=== PATIENT | female | born 1980 | race Caucasian/White ===

== ENCOUNTER 2018-04-05 15:11 | Outpatient (CLI) | payer BC ==
[2018-04-05 16:26] LABS: Hemoglobin 13.5 g/dL (12.0-16.0); Mean Corpuscular Hemoglobin 31.7 pg (27.0-31.0); Mean Corpuscular Volume 93.1 fL (78.0-98.0); Mean Platelet Volume 8.2 fL (7.4-10.4); Platelet Count 257 thou/uL (130-400); RBC Distribution Width 11.3 % (11.5-14.5); Red Blood Cell (RBC) Count 4.26 mill/uL (4.20-5.40); White Blood Cell (WBC) Count 8.5 thou/uL (4.8-10.8)
[2018-04-05 16:32] LABS: BHCG - Serum Negative (NEGATIVE); Pregs Control Background? CLEAR/WHITE (CLR/WHITE); Pregs Control Bar Appear? YES (CONTROL BAR)
== END 2018-04-05 15:12 | disposition home or self-care (01) ==
LOC: LABBT 15:11
PROVIDERS: ATTEND Obstetrics & Gynecology
DX: Z01.812 Encounter for preprocedural laboratory examination (principal); N80.9 Endometriosis, unspecified; N83.201 Unspecified ovarian cyst, right side; N94.6 Dysmenorrhea, unspecified; N94.10 Unspecified dyspareunia; R10.32 Left lower quadrant pain
CPT/HCPCS: 84703; 85027; 86850; 86900; 86901

== ENCOUNTER 2018-04-07 07:01 | Day surgery (SDC) | payer BC ==
[2018-04-05 15:24] VITALS: BMI 23.6
--- NOTE | 2018-04-05 19:49 | HP ---
DATE OF PLANNED PROCEDURE: 04/07/2018 PREOPERATIVE DIAGNOSES: 1. Left lower quadrant pain and endometriosis. 2. Dyspareunia. 3. Dysmenorrhea. HISTORY OF PRESENT ILLNESS: Ms. Carmelina Hare is a 37-year-old G3, P2-0-1-2 with history of left lower quadrant pain with ovulation, menstrual cycles and intercourse for 4-6 months. The patient reports that this pain prevents her from doing her activities of daily living and requires her to stay home d uring her menstrual cycle. The patient gives a history of very painful periods as well as a history of endometriosis that was diagnosed by laparoscopy in her 20s. The patient is not interested in ben ging her symptoms with oral or hormonal therapies and request surgical management. Well the patient desires surgery to remove her left ovary, she does not desire a hysterectomy and requested endometria l ablation. PAST MEDICAL HISTORY: Anxiety, asthma, and depression. PAST SURGICAL HISTORY: Tubal ligation, section x2, breast augmentation, diagnostic laparosc opy. SOCIAL HISTORY: The patient is a daily smoker. She is . Denies alcohol or drug use. FAMILY HISTORY: Negative. OBSTETRICAL HISTORY: Significant for two previous sections. GYNECOLOGIC HISTORY: Significant for irregular periods with severe menstrual cramps. Last Pap smear was 08/2016 with negative Pap smear result and negative HPV testing. The patient sexually active an d has a history of genital warts many years ago. She is using tubal ligation for her contraceptive m ethod and she has a history of endometriosis. MEDICATIONS: Amitriptyline 10 mg daily, clonazepam 1 mg as needed, ProAir HFA as needed, sertraline 100 mg a day. ALLERGIES: The patient is allergic to MORPHINE and WELLBUTRIN. PHYSICAL EXAMINATION: VITAL SIGNS: Height 5 feet 4 inches, weight 130 pounds, BMI 23, blood pressure 134/82, pulse 115, re spiration rate 18, O2 saturation 98%. GENERAL: No acute distress. Alert and oriented. CARDIOVASCULAR: Regular rate and rhythm. LUNGS: Clear to auscultation bilaterally. HEENT: Grossly normal. ABDOMEN: Soft, nontender, no masses, no guarding. GENITOURINARY: No lesions. Normal vaginal mucosa. Physiologic appearing cervical discharge. Uteru s is now enlarged. Bladder and urethra appear normal. No perianal skin lesions, fissures or masses at the rectum. SKIN: Normal. No rashes. Mental status. PSYCHIATRIC: Appropriate mood and affect. IMAGING STUDIES: Ultrasound on 02/20/2018 reports uterus that is a 7.6 x 3.4 cm, left ovary, that is normal appearing. Right ovary that is normal appearing. No free fluid. Simple appearing right ova hector cyst that is 2.5 x 1.5 cm. ASSESSMENT AND PLAN: Ms. Carmelina Hare is a 37-year-old G3, P2-0-1-2 with history of tubal ligation wi th a history of left lower quadrant pain with ovulation, menstrual cycles and intercourse and also wi th a history of dysmenorrhea that affects her activities of daily living. The patient has requested surgical management and has been counseled of the risks, benefits, and alternative methods including medical management options. The patient does not desire a hysterectomy and has requested an endometr ial ablation with laparoscopic removal of her left ovary and tube. The patient understands the risks , benefits, and alternatives to these procedures. She understands that removing the left ovary does not guarantee that her left lower quadrant pain will resolve. She also understands that an endometri al ablation does not guarantee amenorrhea. The patient understands the risks are to include, but not limited to bleeding, infection. Damage to intraabdominal pelvic organs, possible need for future me dical or surgical management and inability to fully diagnose and treat all conditions at the time of surgery. The patient's questions have been answered to her satisfaction. She desires to proceed wit h the procedure as listed above.
[2018-04-07] MEDS ORDERED: CeleCOXIB 100 MG CAP ONE (07:56)
[2018-04-07] MEDS ORDERED: Famotidine/PF 20 mg/2ml Vial ONE (07:56)
[2018-04-07] MEDS ORDERED: CEFAZOLIN/Water 2 GM/20 ML SYRINGE ONE (07:56)
[2018-04-07] MEDS ORDERED: Gabapentin 300 MG CAP ONE (07:56)
[2018-04-07] MEDS ORDERED: Bupivacaine HCl 0.5%/Epinephrine 1:200,000/PF 30 ml Vial ONE (09:18)
[2018-04-07] MEDS ORDERED: Fentanyl 100 MCG/2 ML VIAL ONE (09:26)
[2018-04-07] MEDS ORDERED: Midazolam HCl 2 mg/2 ml Vial ONE (09:50)
[2018-04-07] MEDS ORDERED: Bacitracin Zinc Ointment 30 gm TUBE ONE (10:46)
[2018-04-07] MEDS ORDERED: HYDROcodone/Acetaminophen 5/325 mg Tablet ONE (12:44)
--- NOTE | 2018-04-07 13:12 | OP ---
DATE OF PROCEDURE: 04/07/2018 SURGEON: Seth Rubin D.O. PHYSICS DEPARTMENT CHAIR: Rajni Garcia M.D. PREOPERATIVE DIAGNOSIS: Left lower quadrant pain and dysmenorrhea, menorrhagia. POSTOPERATIVE DIAGNOSIS: Left lower quadrant pain and dysmenorrhea, menorrhagia. PROCEDURES PERFORMED: 1. Robotic assist single site left salpingo-oophorectomy. 2. Uterine dilation and curettage. 3. Hysteroscopy. 4. Romana endometrial ablation. COMPLICATIONS: None. URINE OUTPUT: 80 mL. ESTIMATED BLOOD LOSS: Less than 20 mL. PROCEDURE FINDINGS: Abnormally cystic appearing left ovary and left fallopian tube, normal appearing right ovary, normal appearing uterus both on laparoscopic and hysteroscopic assessment, normal appea ring cervix and vagina. PROCEDURE DETAILS: The patient was taken back to the OR with IV fluids running. Once she was in the operating room, general anesthesia was obtained and the patient was placed in low dorsal lithotomy p osition. The abdomen and vagina were prepped and draped in normal fashion for gynecologic, laparosco pic and hysteroscopic procedures. A Velasco catheter was placed in the bladder to drain the bladder du ring the case. An operative speculum was placed into the vagina. The cervix was grasped with single tooth tenaculum and was easily visualized. The single tooth tenaculum was then removed and sponge w as placed into the vagina for uterine manipulation during the laparoscopic portion of the case. An o perative speculum was removed. The surgeon's gloves were changed and attention was turned to the lap aroscopic portion of the case. Beginning at the umbilicus, a 2.5 cm skin incision was made with the scalpel. The Veress needle was placed through this skin incision at the level of the umbilicus and t he abdomen was insufflated without difficulty. After the abdomen was insufflated, a 12 mm trocar was placed through the skin incision with the above findings noted with the laparoscope. The laparoscop e was then removed and the skin incision was extended over the 12 mm trocar to extend the fascia, the full length of the incision. After the fascia was incised, trocar was removed. The gas was release d from the abdomen and Tj GelPOINT retractor was placed into the abdominal cavity. Next, the margaret otic camera port and 2 operative arm ports were placed through the GelPOINT. After these were in pro per place and alignment, the GelPort lid was assembled over the Tj retractor and the abdomen was insufflated with the ports placed through the skin incision. Next, the instruments were directed und er laparoscopic view through the trocars. The abdomen and pelvis were examined with the above findin gs noted. On the patient's left side, the left ureter was identified and noted to be well away from the IP ligament. The left abnormal appearing ovary was elevated away from the pelvic sidewall. The IP ligament was identified and cauterized. Some small adhesions of the omentum to the left ovary wer e taken down with cauterization. After the IP ligament was cauterized and transected, the left fallo pian tube was dissected away from the mesosalpinx as well. The left fallopian tube was cauterized as well as a left utero-ovarian ligament which was then cauterized and transected. Once the left ovary and tube were freed from the pelvic sidewall and from the uterus, the surgical sites were inspected and no areas of bleeding were noted. The left ovary and tube were placed into an EndoCatch specimen bag which was removed from the operative field through the GelPOINT retractor. After the specimen wa s removed, the surgical area was copiously irrigated and suctioned dry. No areas of bleeding were no brittany. All instruments and ports were removed from the abdomen. The GelPOINT cap was removed. The ga s was released from the abdomen and the Tj retractor was removed from the umbilical incision. Th e fascia was then easily visualized and grasped and the fascial layer was closed with Vicryl suture i n a running fashion. After the fascia was closed, a series of 3 interrupted plain gut sutures were p laced at the subcutaneous tissue to restore the anatomy below the incision. A 4-0 Monocryl was used to close the skin incision. The incision was dressed with bacitracin ointment, sterile cotton ball a nd a sterile Tegaderm dressing. After the laparoscopic portion of the procedure was completed, atten tion was turned to the hysteroscopy and ablation portion of the procedure. An operative speculum was placed into the vagina with the cervix was again grasped with a single tooth tenaculum. The cervix was serially dilated to allow passage of the Romana ablation tip. After the cervix was dilated, the uterus was sounded to approximately 8 cm. The cervix was measured at approximately 3 cm. The hyste roscope was then placed through the cervix and the uterus. Within the uterus, a small polypoid-appea ring tissue was noted at the anterior aspect of the uterus. The tubal ostia were identified. There was some convexity noted at the fundus in the midline, possibly suggestive of an arcuate uterus. Aft er the hysteroscopic portion of the procedure was completed, a gentle curettage was performed and the polypoid-appearing tissue was noted to be removed. This was sent for pathologic review. Next, the Romana was placed at a 5 cm length with tracking a 3 cm cervix with an 8 cm for uterine length. The Romana device was gently placed through the cervix into the uterine cavity. The safety test was co mpleted and normal. After the safety test was completed, the device was initiated and the ablation p rocedure was completed over 120 seconds. After the ablation procedure was completed, the intracervic al balloon was released. The Romana was retracted and removed from the uterus and cervix. Cervix w as inspected with no areas of bleeding noted. There was no bleeding from the tenaculum site. All in struments were removed from the vagina. The counts were correct and Velasco catheter was removed. The patient was then cleaned, dried, taken out of lithotomy position. She was extubated and sent to rec overy room in good condition.
[2018-04-07] MEDS ORDERED: Vecuronium 10 MG VIAL ONE (13:43)
[2018-04-07] MEDS ORDERED: Glycopyrrolate 0.2 MG/ML 5 ML SYRINGE ONE (13:43)
[2018-04-07] MEDS ORDERED: ePHEDrine/0.9% NaCl/PF SYRINGE 50 mg/10 ml ONE (13:43)
[2018-04-07] MEDS ORDERED: PHENYLEPHRINE-NS 100 MCG/ML 10 ML SYRINGE ONE (13:43)
[2018-04-07] MEDS ORDERED: PROPOFOL 200 MG/20 ML VIAL ONE (13:43)
[2018-04-07] MEDS ORDERED: Succinylcholine Chloride 20 MG/ML 10 ml SYRINGE FS ONE (13:43)
[2018-04-07] MEDS ORDERED: Ondansetron PF 4 MG/2 ML Vial ONE (13:43)
[2018-04-07] MEDS ORDERED: Dexamethasone 20 MG/5 ML VIAL ONE (13:43)
[2018-04-07] MEDS ORDERED: Lidocaine 1% PF 5 ML VIAL ONE (13:43)
== END 2018-04-07 13:00 | disposition home or self-care (01) ==
LOC: SDC 07:01
PROVIDERS: ATTEND Obstetrics & Gynecology
PROC: 0UT14ZZ Resection of Left Ovary, Percutaneous Endoscopic Approach (ICD-10-PCS; principal; 2018-04-07)
PROC: 0U5B8ZZ Destruction of Endometrium, Via Natural or Artificial Opening Endoscopic (ICD-10-PCS; principal; 2018-04-07)
PROC: 0UT64ZZ Resection of Left Fallopian Tube, Percutaneous Endoscopic Approach (ICD-10-PCS; principal; 2018-04-07)
DX: N92.0 Excessive and frequent menstruation with regular cycle (principal); N83.202 Unspecified ovarian cyst, left side; N80.9 Endometriosis, unspecified; F41.9 Anxiety disorder, unspecified; F32.9 Major depressive disorder, single episode, unspecified; J45.909 Unspecified asthma, uncomplicated; F17.210 Nicotine dependence, cigarettes, uncomplicated; Z79.899 Other long term (current) drug therapy; Z88.5 Allergy status to narcotic agent; Z88.8 Allergy status to other drugs, medicaments and biological substances; Z98.51 Tubal ligation status
CPT/HCPCS: 96374; J0670; J2250; J3010; S0028

== ENCOUNTER 2018-04-07 19:26 | Emergency (ER) | payer BC ==
[2018-04-07 20:24] LABS: #Eosinphils 0.1 thou/uL (0.0-0.7); #Lymphocytes 0.8 thou/uL (1.20-3.40); #Monocytes 0.3 thou/uL (0.11-0.59); #Neutrophils 9.7 thou/uL (1.40-6.50); %Basophils 0.4 % (0.0-1.0); %Eosinophils 0.7 % (0.0-10.0); %Lymphocytes 7.6 % (21.0-51.0); %Monocytes 2.6 % (0.0-10.0); %Neutrophils 88.7 % (42.0-75.0); Hemoglobin 11.6 g/dL (12.0-16.0); Mean Corpuscular HGB CONC 34.2 g/dL (32.0-36.0); Mean Corpuscular Hemoglobin 30.5 pg (27.0-31.0); Mean Corpuscular Volume 89.2 fL (78.0-98.0); Mean Platelet Volume 8.9 fL (7.4-10.4); Platelet Count 171 thou/uL (130-400); RBC Distribution Width 11.2 % (11.5-14.5); Red Blood Cell (RBC) Count 3.79 mill/uL (4.20-5.40); White Blood Cell (WBC) Count 10.9 thou/uL (4.8-10.8)
[2018-04-07] MEDS ORDERED: diphenhydrAMINE 50 MG/ML VIAL ONE (20:58)
--- NOTE | 2018-04-07 22:14 | ULT ---
SONOGRAM ABDOMEN LIMITED: 04/07/18 HISTORY: Recent surgery. Evaluate for free fluid. FINDINGS/IMPRESSION: Urinary bladder is incompletely distended. Very small amount of free fluid within the cul-de-sac. No more than would be expected for a female of childbearing age. POS: CRISTIANO
[2018-04-07 22:25] LABS: Hemoglobin 10.8 g/dL (12.0-16.0)
== END 2018-04-07 23:13 | disposition home or self-care (01) ==
LOC: SCSER 19:26
DX: N99.821 Postprocedural hemorrhage of a genitourinary system organ or structure following other procedure (principal); F41.9 Anxiety disorder, unspecified; F32.9 Major depressive disorder, single episode, unspecified; J45.909 Unspecified asthma, uncomplicated; F17.210 Nicotine dependence, cigarettes, uncomplicated; Z79.899 Other long term (current) drug therapy
CPT/HCPCS: 36415; 76705; 85025; 88305; 88307; 96374; 96375; J0670; J1200; J2250; J2270; J3010; S0028

== ENCOUNTER 2018-05-09 19:51 | Observation (INO) | payer BC ==
[~2018-05-09 19:51] MED LIST: Iopamidol 370 76% 100 ML VIAL ONE
[2018-05-09 20:52] LABS: #Basophils 0.1 thou/uL (0.0-0.2); #Eosinphils 0.3 thou/uL (0.0-0.7); #Lymphocytes 2.7 thou/uL (1.20-3.40); #Monocytes 0.9 thou/uL (0.11-0.59); #Neutrophils 9.6 thou/uL (1.40-6.50); %Eosinophils 1.9 % (0.0-10.0); %Lymphocytes 19.7 % (21.0-51.0); %Monocytes 6.7 % (0.0-10.0); %Neutrophils 70.8 % (42.0-75.0); Mean Corpuscular HGB CONC 34.4 g/dL (32.0-36.0); Mean Corpuscular Hemoglobin 29.5 pg (27.0-31.0); Mean Corpuscular Volume 85.8 fL (78.0-98.0); Mean Platelet Volume 7.9 fL (7.4-10.4); Platelet Count 266 thou/uL (130-400); Red Blood Cell (RBC) Count 4.06 mill/uL (4.20-5.40); White Blood Cell (WBC) Count 13.5 thou/uL (4.8-10.8)
[2018-05-09 20:55] LABS: Bilirubin Negative (Negative); Blood, Urine Trace (Negative); Clarity Slightly Cloudy (Clear); Glucose, Urine (Dipstick) Negative (Negative); Leukocyte Negative (Negative); Nitrite Negative (Negative); Protein, Urine (Dipstick) Trace mg/dL (Neg-Trace); Urobilinogen 0.2 mg/dL (0.2-1.0)
[2018-05-09 20:56] LABS: Bacteria/HPF 1+ HPF (None Seen); RBC/HPF 0-3 HPF (0-3); WBC/HPF 0-3 HPF (0-3)
[2018-05-09 21:04] LABS: Pregnancy Test - Urine (BHCG) Negative (Negative)
[2018-05-09 21:05] LABS: Pregu Control Background? CLEAR/WHITE (CLR/WHITE); Pregu Control Bar Appear? YES (CONTROL BAR)
[2018-05-09 21:06] LABS: ALT (SGPT) 8 U/L (8-55); AST (SGOT) 11 U/L (5-34); Albumin 3.9 g/dL (3.5-5.0); Alkaline Phosphatase 76 U/L (40-150); Anion Gap 16 mmol/L (10-20); BUN (Urea Nitrogen) 13 mg/dL (7.0-18.7); Bilirubin, Total 0.6 mg/dL (0.2-1.2); Calc. Creatinine Clearance 0 mL/min (70-130); Calcium 9.3 mg/dL (7.8-10.44); Carbon Dioxide 24 mmol/L (22-29); Chloride 102 mmol/L (98-107); Estimated GFR-MDRD Greater than 90; Globulin 3.5 g/dL (2.4-3.5); Glucose 104 mg/dL (70-105); Lipase 66 U/L (8-78); Potassium 3.9 mmol/L (3.5-5.1); Protein, Total 7.4 g/dL (6.0-8.3); Sodium 138 mmol/L (136-145)
[2018-05-09] MEDS ORDERED: Piperacillin/Tazobactam 4.5 GM VIAL ONE (21:47)
[2018-05-09] MEDS ORDERED: Morphine 4 MG/ML VIAL ONE (22:16)
[2018-05-09] MEDS ORDERED: Ondansetron PF 4 MG/2 ML Vial ONE (22:17)
--- NOTE | 2018-05-09 23:10 | CT ---
CT OF ABDOMEN AND PELVIS 05/09/18 COMPARISON: None. HISTORY: Abdominal pain and diarrhea. TECHNIQUE: Axial CT imaging at 5 mm intervals from lung bases through pubic symphysis with IV contrast. Coronal reformatted imaging obtained. FINDINGS: The imaged lung bases are unremarkable. No free intraperitoneal air. The liver, spleen, gallbladder, pancreas, adrenal glands, and kidneys are unremarkable. Lack of oral contrast limits assessment of the bowel. There is small volume free fluid in the pelvic cul-de-sac. The sigmoid colon is markedly thick walled and demonstrates prominent pericolonic fat stranding, particularly in the left hemipelvis, best seen on axial image 63. The thickened and inflamed abnormal colon measures at least 9 cm in length. There is a lobulated fluid collection with component seen along the medial and lateral wall of the inflame d sigmoid colon extending superiorly to abut the superior aspect of the colon and abut the lateral as pect of the uterus in the left lower quadrant/left hemipelvis. This is most consistent with a complex multiloculated abscess surrounding the colon. This measures up to approximately 2.9 cm AP dimension , 3.0 cm transverse dimension, and 2.8 cm craniocaudal dimension. This is not amenable to CT directed catheter drainage given its complexity and relation to the markedly abnormal colon. There is no evid ence for bowel obstruction. The vascular structures appear patent. No discrete lymphadenopathy is not ed within the pelvis. There are a few scattered enlarged nodes present in the left para-aortic region . The appendix is visualized and appears within normal limits. No acute osseous abnormality. Mild left periaortic lymphadenopathy noted within the retroperitoneum. IMPRESSION: Markedly thick walled and inflamed sigmoid colon with a complex multiloculated fluid collection along the medial, lateral and superior margin of the inflamed sigmoid colon as above. Findings suggests no nspecific colitis(infectious/inflammatory) with associated abscess formation. Surgical consultation i s advised. Crohn's disease is a possibility. Recommend direct visualization via colonoscopy once the acute symptoms have resolved to evaluate for an underlying colonic mass lesion which may have perfor ated. Code T POS: CRISTIANO
[2018-05-09] MEDS ORDERED: diphenhydrAMINE 25 MG CAP PO PRN (23:32)
[2018-05-09] MEDS ORDERED: Ondansetron PF 4 MG/2 ML Vial IVP PRN (23:32)
[2018-05-09] MEDS ORDERED: Ondansetron ODT 4 MG TAB SL PRN (23:32)
[2018-05-10] MEDS: Lactated Ringer's 1,000 ML IV SCH ×4 (00:17→21:01)
[2018-05-10] MEDS: Morphine 2 MG/ML SYRINGE SLOW IVP PRN ×4 (01:21→18:28)
[2018-05-10] MEDS: Piperacillin/Tazobactam 3.375 GM in Sodium Chloride 0.9% 100 ML IVPB SCH ×4 (04:14→20:59)
[2018-05-10 10:26] LABS: #Eosinphils 0.3 thou/uL (0.0-0.7); #Lymphocytes 2.4 thou/uL (1.20-3.40); #Monocytes 0.8 thou/uL (0.11-0.59); #Neutrophils 7.1 thou/uL (1.40-6.50); %Basophils 0.4 % (0.0-1.0); %Eosinophils 3.2 % (0.0-10.0); %Lymphocytes 22.5 % (21.0-51.0); %Monocytes 7.7 % (0.0-10.0); %Neutrophils 66.2 % (42.0-75.0); Hemoglobin 12.1 g/dL (12.0-16.0); Mean Corpuscular HGB CONC 33.8 g/dL (32.0-36.0); Mean Corpuscular Hemoglobin 30.8 pg (27.0-31.0); Mean Corpuscular Volume 90.9 fL (78.0-98.0); Mean Platelet Volume 8.3 fL (7.4-10.4); Platelet Count 332 thou/uL (130-400); RBC Distribution Width 11.6 % (11.5-14.5); Red Blood Cell (RBC) Count 3.92 mill/uL (4.20-5.40); White Blood Cell (WBC) Count 10.8 thou/uL (4.8-10.8)
[2018-05-10] MEDS ORDERED: diphenhydrAMINE 25 MG CAP PO PRN (11:31)
[2018-05-10] MEDS ORDERED: Ondansetron PF 4 MG/2 ML Vial SLOW IVP PRN (11:32)
[2018-05-10] MEDS ORDERED: Ondansetron ODT 4 MG TAB SL PRN (11:32)
[2018-05-10] MEDS ORDERED: Amitriptyline HCl 10 MG TAB PO SCH ×2 (11:45→21:00)
[2018-05-10 12:51] VITALS: BMI 22.6
--- NOTE | 2018-05-10 13:00 | HP ---
CHIEF COMPLAINT: Left lower quadrant abdominal pain. HISTORY OF PRESENT ILLNESS: This patient is a 37-year-old white female. She presented to the emergency room late yesterday, secondary to concerns regarding ongoing left lower quadrant abdominal pain and rectal mucus discharge. She notes that on April 07, she underwent robotic single-site left salpingo-oophorectomy per Dr. Seth Rubin. This was performed secondary to left lower quadrant abdominal pain and endometriosis. She also underwent endometrial ablation at the time of that surgery. The patient notes that she had the same pain that she has currently before and after her surgery and believes that nothing has really changed. She does not believe that she is hurting any worse now than she was several days ago or a week ago, but she presented because of the mucus discharge and the ongoing discomfort. She denies any fever. She denies any vomiting, but she has experienced some nausea. She notes diarrhea bowel movements, but tells me that these are fairly typical for her. What is unusual is the frequent rectal mucus discharge over the past 5 days. She does have a history of colonoscopy in 2016, at which time polyps were found, but no evidence of diverticular disease. She cannot recall who her apprenticeship training representative was. She presented to the emergency room last night and was evaluated with radiological and laboratory studies. Her white blood cell count was noted to be elevated at 13.5 with hemoglobin of 12.0. She did not have a significant left shift. Her chemistry profile was unremarkable. Urinalysis was slightly cloudy but with no elevated white blood cells. CT scan was obtained revealing a complex fluid collection in the left lower quadrant adjacent to the left upper uterus and around the sigmoid colon. It was difficult to discern the etiology. PAST MEDICAL HISTORY: 1. Anxiety. 2. Asthma. 3. Depression. 4. Tobacco abuse. PAST SURGICAL HISTORY: 1. Tubal ligation. 2. section x2. 3. Breast augmentation. 4. Diagnostic laparoscopy. 5. Robotic single-site left salpingo-oophorectomy with hysteroscopy and endometrial ablation. MEDICATIONS: 1. Amitriptyline. 2. Zoloft. 3. Albuterol inhaler p.r.n. 4. Clonazepam p.r.n. ALLERGIES: SHE WAS PREVIOUSLY ALLERGIC TO MORPHINE, BUT TELLS ME SHE NOW TOLERATES THIS. SHE HAS HAD ADVERSE REACTIONS TO WELLBUTRIN. PERSONAL AND SOCIAL HISTORY: She is . She has 4 children, 2 of them are biological. She works at [employer], but is mostly a [id number] mom. She smokes about a pack per day of cigarettes. She has a history of substance abuse. REVIEW OF SYSTEMS: Otherwise unremarkable. FAMILY HISTORY: Noncontributory. PHYSICAL EXAMINATION: VITAL SIGNS: Her temperature is 98, pulse 83, and blood pressure is 111/70. GENERAL: She is a well-developed, well-nourished, pleasant white female. She is 5 feet 4 inches, tall, weighs about 131 pounds. She is alert and oriented x3 and conversant. She did get emotional a couple of times during the examination. HEAD, EYES, EARS, NOSE, AND THROAT: Unremarkable. NECK: Supple. LUNGS: Clear to auscultation throughout. CARDIAC: Regular rate and rhythm. ABDOMEN: Soft with normoactive bowel sounds. Her robotic periumbilical incision is well healed and minimally tender. She has focal tenderness with guarding in the left lower quadrant and no discomfort elsewhere. EXTREMITIES: Unremarkable. LABORATORY DATA: Labs were as mentioned above. ASSESSMENT AND PLAN: The patient with a fluid collection in the left lower quadrant. This is a complex fluid collection that would likely now be amenable to catheter drainage. It is difficult, given her history to discern whether this is postoperative related to her gynecologic surgery or whether this is a new phenomenon. Her images are not definitely diagnostic for either a colonic or a postoperative process. For now, she is certainly not toxic. I have consulted her gym instructor, Dr. Rubin, for her recommendations. Options include continued treatment with IV antibiotics, laparoscopy with washout. Radiology does not feel that this is amenable to drainage and its position within the abdomen and its relative depth in the abdominal wall probably makes this unlikely to be successful. For now, we will continue with pain control, IV antibiotics, and further decision-making. We will look her after a gynecologic consultation. Job ID: [id number]
[2018-05-10] MEDS: Famotidine 20 MG TAB PO SCH (20:29)
--- NOTE | 2018-05-11 00:22 | CON ---
DATE OF CONSULTATION: 05/10/2018 REASON FOR CONSULTATION: Left lower quadrant pain and fluid collection adjacent to the sigmoid colon and uterus, noted approximately 1 month postop from a gynecologic procedure. HISTORY OF PRESENT ILLNESS: Ms. Carmelina Hare is a 37-year-old female with past medical history of anxiety, depression, asthma, and tobacco use, who presented to the ER yesterday for left lower quadrant pain and bloody mucus discharge from her rectum. The patient has a long history of left lower quadrant pain, which she previously attributed to endometriosis and underwent a left salpingo-oophorectomy at the time of an endometrial ablation. The patient reports that her left lower quadrant pain is virtually unchanged from prior to her gynecologic procedure and that the only new finding which prompted her to present to the ER was copious mucus discharge from the rectum with and without bowel movements and some bright red bleeding with bowel movements. The patient has a long history of alternating constipation and diarrhea and has seen a circular ripsaw operator before with a colonoscopy a few years ago, at which time she reports polyps were removed and she was given no other diagnoses. The patient denies any fevers or chills. She denies any nausea or vomiting and has been tolerating regular diet without difficulty. She has no concern with healing of her laparoscopic incision and denies any vaginal bleeding or discharge. PAST MEDICAL HISTORY: 1. Anxiety. 2. Depression. 3. Asthma. 4. Tobacco use. PAST SURGICAL HISTORY: 1. Tubal ligation. 2. Breast augmentation. 3. section. 4. Diagnostic laparoscopy with laparoscopic left salpingo-oophorectomy with endometrial ablation in March 2018. SOCIAL HISTORY: The patient is . She is an everyday smoker. Denies use of illicit drugs. FAMILY HISTORY: Noncontributory. OBSTETRICAL HISTORY: Includes 2 previous sections. REVIEW OF SYSTEMS: Negative except per HPI. CURRENT MEDICATIONS: 1. Amitriptyline. 2. Zoloft. 3. Albuterol inhaler. 4. Clonazepam. ALLERGIES: WELLBUTRIN. PHYSICAL EXAMINATION: VITAL SIGNS: Temperature 98.8, pulse 88, respirations 20, blood pressure 111/61. GENERAL: No acute distress. Alert and oriented. CHEST: Non-labored breathing. ABDOMEN: Soft, flat, nondistended. Guarding with tenderness to palpation in the left lower quadrant. No rebound tenderness noted on palpation of the right lower quadrant. PELVIC: Deferred. EXTREMITIES: Normal range of motion in the upper and lower extremities. NEURO: Affect normal. No distress. The patient actively moving around in her bed without discomfort. LABORATORY DATA: White blood cell count on admission 13.5, today 10.8. Hemoglobin 12.0, platelets 266 on admission. Chemistry unremarkable. UA; trace blood, +1 bacteria and squamous epithelial cells. DIAGNOSTIC DATA: CT report describes a thickened and inflamed colon, measuring 9 cm in length, lobulated fluid collection seen along the medial and lateral wall of the inflamed sigmoid colon extending superiorly to both the superior aspect of the colon and the lateral aspect of the uterus in the left lower quadrant. There was a fluid collection of approximately 3 x 3 cm that appears complex and multiloculated. Few scattered enlarged lymph nodes are noted in the left paraaortic region. ASSESSMENT AND PLAN: Ms. Carmelina Hare is a 37-year-old female with a long history of chronic left lower quadrant pain, who presented after change in her stool pattern with increased rectal mucus and blood. The patient's CT scan and history are concerning for colitis; however, there is also suspicion for possible postoperative pelvic infection which must be considered with the patient being approximately 5 weeks remote from a laparoscopic left salpingo-oophorectomy. We discussed that this is a potential complication; however, it is uncommon to have a pelvic infection during a salpingo-oophorectomy. We discussed management options which include observation with continued IV antibiotics versus laparoscopy versus colonoscopy. At this time, I have discussed the findings with Dr. Kat, and if the patient appears to improve clinically, we will defer laparoscopy at this time and continue with the plan for IV antibiotics and observation. Job ID: [id number]
[2018-05-11] MEDS: Piperacillin/Tazobactam 3.375 GM in Sodium Chloride 0.9% 100 ML IVPB SCH ×2 (03:19→09:03)
[2018-05-11] MEDS: Morphine 2 MG/ML SYRINGE SLOW IVP PRN ×3 (03:22→12:56)
[2018-05-11 05:49] LABS: #Basophils 0.1 thou/uL (0.0-0.2); #Eosinphils 0.3 thou/uL (0.0-0.7); #Lymphocytes 1.7 thou/uL (1.20-3.40); #Monocytes 0.5 thou/uL (0.11-0.59); #Neutrophils 2.6 thou/uL (1.40-6.50); %Basophils 1.1 % (0.0-1.0); %Eosinophils 5.8 % (0.0-10.0); %Lymphocytes 32.6 % (21.0-51.0); %Monocytes 9.5 % (0.0-10.0); Hemoglobin 11.1 g/dL (12.0-16.0); Mean Corpuscular HGB CONC 34.4 g/dL (32.0-36.0); Mean Corpuscular Hemoglobin 31.5 pg (27.0-31.0); Mean Corpuscular Volume 91.5 fL (78.0-98.0); Mean Platelet Volume 8.5 fL (7.4-10.4); Platelet Count 301 thou/uL (130-400); RBC Distribution Width 11.5 % (11.5-14.5); Red Blood Cell (RBC) Count 3.54 mill/uL (4.20-5.40); White Blood Cell (WBC) Count 5.1 thou/uL (4.8-10.8)
[2018-05-11 05:57] LABS: Anion Gap 10 mmol/L (10-20); BUN (Urea Nitrogen) 11 mg/dL (7.0-18.7); Calc. Creatinine Clearance 102 mL/min (70-130); Calcium 8.7 mg/dL (7.8-10.44); Carbon Dioxide 28 mmol/L (22-29); Chloride 106 mmol/L (98-107); Estimated GFR-MDRD Greater than 90; Glucose 90 mg/dL (70-105); Potassium 4.2 mmol/L (3.5-5.1); Sodium 140 mmol/L (136-145)
[2018-05-11] MEDS: Lactated Ringer's 1,000 ML IV SCH (06:49)
[2018-05-11] MEDS: Famotidine 20 MG TAB PO SCH (09:02)
[2018-05-11 12:18] VITALS: BP 108/72; TEMP 97.9
--- NOTE | 2018-05-11 17:52 | PRG ---
DATE OF SERVICE: 05/11/2018 Hospital day #3. SUBJECTIVE: No fever or chills. Decreased pain. Continued rectal mucus discharge with blood mixed in stool. No nausea or vomiting. No vaginal discharge. OBJECTIVE: VITAL SIGNS: Within normal limits. GENERAL: No acute distress. CHEST: Nonlabored breathing. ABDOMEN: Soft. Mild tenderness in the left lower quadrant, improved from exam yesterday. No right lower quadrant tenderness. No suprapubic tenderness. No rebound. No distention. Umbilical port site well healed with no evidence of infection. EXTREMITIES: Normal active movement and range of motion. No edema. PSYCHIATRIC: Mood, appropriate affect. ASSESSMENT AND PLAN: Ms. Carmelina Hare is hospital #3, receiving IV antibiotics for suspected colitis versus intrapelvic abscess. The patient clinically has appeared to improve on IV antibiotics. She notes a decrease in her pain, however, still complains of rectal mucus discharge and mixed blood in her stool. I discussed with the patient that from a gynecologic standpoint, there is no need for laparoscopy if she is improving with IV antibiotics, however, if the etiology of her pain and abnormal CT scan findings are suggestive of a colonic process that other treatment may be warranted and that I have deferred those treatment to the General Surgery Team. The patient's questions have been answered, she agrees with the plan of care. Job ID: [id number]
== END 2018-05-11 15:52 | disposition home or self-care (01) ==
LOC: SCSER 19:51 → SURG A 22:14
PROVIDERS: ADMIT Specialist; ATTEND Specialist
DX: R10.32 Left lower quadrant pain (principal); K92.1 Melena; F41.9 Anxiety disorder, unspecified; J45.909 Unspecified asthma, uncomplicated; F32.9 Major depressive disorder, single episode, unspecified; F17.210 Nicotine dependence, cigarettes, uncomplicated; Z86.010 Personal history of colon polyps; Z79.899 Other long term (current) drug therapy; Z88.8 Allergy status to other drugs, medicaments and biological substances; Z90.721 Acquired absence of ovaries, unilateral; Z90.79 Acquired absence of other genital organ(s)
CPT/HCPCS: 36415; 74177; 80048; 80053; 81003; 81015; 81025; 83690; 85025; 96361; 96365; 96366; 96372; 96375; 96376; G0378; J2270; J2405; J2543; J7050; Q0162

== ENCOUNTER 2019-02-08 18:29 | Emergency (ER) | payer BC ==
[2019-02-08 19:15] LABS: #Basophils 0.1 thou/uL (0.0-0.2); #Eosinphils 0.3 thou/uL (0.0-0.7); #Lymphocytes 3.3 thou/uL (1.20-3.40); #Monocytes 0.5 thou/uL (0.11-0.59); #Neutrophils 5.5 thou/uL (1.40-6.50); %Basophils 1.5 % (0.0-1.0); %Eosinophils 2.8 % (0.0-10.0); %Lymphocytes 34.4 % (21.0-51.0); %Monocytes 4.9 % (0.0-10.0); %Neutrophils 56.5 % (42.0-75.0); Hemoglobin 14.3 g/dL (12.0-16.0); Mean Corpuscular HGB CONC 34.7 g/dL (32.0-36.0); Mean Corpuscular Hemoglobin 31.6 pg (27.0-31.0); Mean Platelet Volume 9.1 fL (7.4-10.4); Platelet Count 236 thou/uL (130-400); Red Blood Cell (RBC) Count 4.52 mill/uL (4.20-5.40); White Blood Cell (WBC) Count 9.7 thou/uL (4.8-10.8)
[2019-02-08] MEDS ORDERED: Ketorolac Tromethamine 30 MG/ML VIAL ONE (19:29)
[2019-02-08 19:30] LABS: ALT (SGPT) 12 U/L (8-55); AST (SGOT) 16 U/L (5-34); Albumin 4.4 g/dL (3.5-5.0); Alkaline Phosphatase 57 U/L (40-150); Anion Gap 15 mmol/L (10-20); BUN (Urea Nitrogen) 15 mg/dL (7.0-18.7); Bilirubin, Total 0.7 mg/dL (0.2-1.2); Calc. Creatinine Clearance 0 mL/min (70-130); Calcium 9.3 mg/dL (7.8-10.44); Carbon Dioxide 23 mmol/L (22-29); Chloride 103 mmol/L (98-107); Estimated GFR-MDRD 85; Globulin 2.2 g/dL (2.4-3.5); Glucose 84 mg/dL (70-105); Lipase 80 U/L (8-78); Protein, Total 6.6 g/dL (6.0-8.3); Sodium 137 mmol/L (136-145)
[2019-02-08 19:31] LABS: Bilirubin Negative (Negative); Blood, Urine Moderate (Negative); Clarity Clear (Clear); Glucose, Urine (Dipstick) Negative (Negative); Leukocyte Negative (Negative); Nitrite Negative (Negative); Pregnancy Test - Urine (BHCG) Negative (Negative); Pregu Control Background? CLEAR/WHITE (CLR/WHITE); Pregu Control Bar Appear? YES (CONTROL BAR); Protein, Urine (Dipstick) Negative (Neg-Trace); Urobilinogen 0.2 mg/dL (Less than 2)
[2019-02-08 19:37] LABS: Potassium 3.5 mmol/L (3.5-5.1)
[2019-02-08 19:40] LABS: Bacteria/HPF Rare-Few HPF (None Seen)
--- NOTE | 2019-02-08 21:47 | CT ---
CT ABDOMEN WITH CONTRAST CT PELVIS WITH CONTRAST: DATE: 02/08/2019 HISTORY: 38-year-old female with left lower quadrant abdominal pain and bloody, mucousy stool. COMPARISON: 05/09/2018 TECHNIQUE: IV injection of iodinated contrast media: administered. Oral contrast media:Administered FINDINGS: Oral contrast is present throughout small intestine and entire colon down to the rectum. The previous ly demonstrated complex multiloculated fluid collection around the sigmoid colon representing abscess, is no longer present. Currently there is no overt evidence of colitis or colonic diverticuli tis, although the sigmoid colon is incompletely distended and slightly more difficult to evaluate than the rest of the colon which is normal. No small bowel dilation. Lack of visceral fat is a limita tion of this study. Normal appendix. No abnormality identified involving abdominal aorta, adrenals, liver, pancreas, spleen, or kidneys. Lung bases are clear. The decompressed urinary bladder. IMPRESSION: Negative
== END 2019-02-08 21:55 | disposition home or self-care (01) ==
LOC: SCSER 18:29
DX: R10.32 Left lower quadrant pain (principal); J45.909 Unspecified asthma, uncomplicated; F41.9 Anxiety disorder, unspecified; F32.9 Major depressive disorder, single episode, unspecified; F17.210 Nicotine dependence, cigarettes, uncomplicated; Z79.899 Other long term (current) drug therapy; Z79.51 Long term (current) use of inhaled steroids
CPT/HCPCS: 74177; 80053; 81003; 81015; 81025; 82274; 83690; 85025; 87045; 87046; 87081; 87427; 87449; 96361; 96374; J1885

== ENCOUNTER 2019-11-12 | Outpatient (CLI) | payer BC | END 2019-11-12 08:07 | disposition home or self-care (01) | DX: Z12.31 Encounter for screening mammogram for malignant neoplasm of breast (principal); Z80.3 Family history of malignant neoplasm of breast; Z98.82 Breast implant status ==

== ENCOUNTER 2020-11-21 12:11 | Outpatient (CLI) | payer BC | END 2020-11-21 12:12 | disposition home or self-care (01) | LOC: SCSRAD 12:11 | PROVIDERS: ATTEND Family Medicine | DX: J45.40 Moderate persistent asthma, uncomplicated (principal) | CPT/HCPCS: 71046 ==

== ENCOUNTER 2023-12-09 08:16 | Outpatient (CLI) | payer BC | END 2023-12-09 08:17 | disposition home or self-care (01) | LOC: LABBT 08:16 | PROVIDERS: ATTEND Otolaryngology Plastic Surgery within the Head & Neck | DX: Z01.812 Encounter for preprocedural laboratory examination (principal); J34.2 Deviated nasal septum; J34.3 Hypertrophy of nasal turbinates; J34.89 Other specified disorders of nose and nasal sinuses | CPT/HCPCS: 85014 ==

== ENCOUNTER 2023-12-14 10:24 | Day surgery (SDC) | payer BC ==
[2023-12-13 08:54] VITALS: BMI 19.7
[2023-12-14] MEDS ORDERED: Rocuronium Bromide 10 MG/ML (10ML VIAL) ONE (11:18)
[2023-12-14] MEDS ORDERED: methylPREDNISolone Acetate 40 mg/ml Vial ONE (11:18)
[2023-12-14] MEDS ORDERED: fentaNYL PF 100 MCG/2 ML SYRINGE ONE ×2 (11:18→13:10)
[2023-12-14] MEDS ORDERED: Ondansetron PF 4 MG/2 ML Vial ONE (11:18)
[2023-12-14] MEDS ORDERED: Dexamethasone 20 MG/5 ML VIAL ONE (11:18)
[2023-12-14] MEDS ORDERED: PROPOFOL 20 ML ONE (11:18)
[2023-12-14] MEDS ORDERED: AFRIN NASAL MIST 15 ML BOT ONE (11:33)
[2023-12-14] MEDS ORDERED: Midazolam HCl 2 mg/2 ml Vial ONE (11:39)
[2023-12-14] MEDS ORDERED: Bacitracin Zinc Ointment 30 gm TUBE ONE (12:23)
[2023-12-14] MEDS ORDERED: EPINEPHrine 1 MG/ML VIAL ONE (12:23)
[2023-12-14] MEDS ORDERED: Oxymetazoline HCl 0.05% (30 ML BOT) ONE (12:23)
[2023-12-14] MEDS ORDERED: Lidocaine 1% (PF) 30 ML VIAL ONE (12:24)
[2023-12-14] MEDS ORDERED: SUGAMMADEX SODIUM 200 MG/2 ML VIAL ONE (12:50)
[2023-12-14] MEDS ORDERED: HYDROmorphone 0.5 MG/0.5 ML SYRINGE ONE ×2 (13:22→13:48)
== END 2023-12-14 14:34 | disposition home or self-care (01) ==
LOC: SDC 10:24
PROVIDERS: ATTEND Otolaryngology Plastic Surgery within the Head & Neck
PROC: 09TL8ZZ Resection of Nasal Turbinate, Via Natural or Artificial Opening Endoscopic (ICD-10-PCS; principal; 2023-12-14)
PROC: 09BM8ZZ Excision of Nasal Septum, Via Natural or Artificial Opening Endoscopic (ICD-10-PCS; principal; 2023-12-14)
DX: J34.2 Deviated nasal septum (principal); J34.3 Hypertrophy of nasal turbinates; J34.89 Other specified disorders of nose and nasal sinuses; Z88.8 Allergy status to other drugs, medicaments and biological substances
CPT/HCPCS: J0171; J1030; J1100; J1170; J2001; J2250; J2405; J2704